=== PATIENT | female | born 1950 | race Two or more races ===

== ENCOUNTER 2019-01-22 12:12 | Outpatient (CLI) | payer OTHER | END 2019-01-22 15:01 | disposition home or self-care (01) | LOC: RAD 12:12 | DX: C50.412 Malignant neoplasm of upper-outer quadrant of left female breast (principal); Z01.811 Encounter for preprocedural respiratory examination ==

== ENCOUNTER 2019-01-28 14:30 | Inpatient (IN) | payer OTHER ==
[~2019-01-28] VITALS: Ht 157.5 cm; Wt 66.2 kg
== END 2019-02-01 09:55 | disposition home or self-care (01) | DRG 583 ==
LOC: EDUNIT# 14:30 → SURG 01-30 06:10 → O/R 01-30 06:10 → SURH 01-30 09:30 → SURG 01-30 15:39
PROVIDERS: ADMIT Specialist
PROC: 07T60ZZ Resection of Left Axillary Lymphatic, Open Approach (ICD-10-PCS; 2019-01-30)
PROC: 0HTU0ZZ Resection of Left Breast, Open Approach (ICD-10-PCS; principal; 2019-01-30 09:30)
DX: C50.412 Malignant neoplasm of upper-outer quadrant of left female breast (principal); I10 Essential (primary) hypertension

== ENCOUNTER 2019-02-26 08:11 | Outpatient (CLI) | payer OTHER | END 2019-02-26 08:26 | disposition home or self-care (01) | LOC: NUCLEAR 08:11 | DX: C50.412 Malignant neoplasm of upper-outer quadrant of left female breast (principal) | CPT/HCPCS: 78815; A9552 ==